=== PATIENT | male | born 1950 | race African-American/Black ===

== ENCOUNTER 2018-03-10 22:12 | Emergency (ER) | payer OTHER ==
[~2018-03-10] VITALS: Ht 175.3 cm; Wt 90.7 kg
[2018-03-10 22:14] VITALS: BP_SYST 142
--- NOTE | 2018-03-10 22:14 | NUR ---
Patient to [facility] in custody of [employer] for legal blood draw.
--- NOTE | 2018-03-10 22:45 | NUR ---
Written and verbal consent obtained from patient for blood alcohol, name and verified by patient. Disinfected patient's skin with Povidone-Iodine that did not contain alcohol or other volatile organic compound. Collected the blood from the subject named by venipuncture, in the presence of Deputy Dinh . Used a sterile, dry hypodermic needle and dry vacuum blood collection. The dry vacuum blood collection were supplied by the officer named above. Withdrew a specimen of blood from right AC of the subject named above. Inverted the blood tube several times to ensure that the preservative and anticoagulant were thoroughly mixed in the blood specimen. I initialed the blood tubes labels for identification. The labeled blood tubes were handed directly to the Officer named above. The blood tube stopper remained in place while I had possession of the blood tube. The Officer placed tube into envelope and sealed it in my presence. Envelope initialed by myself and Officer named above. Patient tolerated well, bandage applied, and bleeding controlled.
[2018-03-10 22:50] VITALS: BP_SYST 140
--- NOTE | 2018-03-10 22:50 | NUR ---
Patient left ER in no acute distress, able to ambulate without difficulty with slow, steady gait in handcuffs in custody of [facility]. Patient without complaints at present.
== END 2018-03-10 22:50 ==
LOC: SED 22:12
DX: Z02.83 Encounter for blood-alcohol and blood-drug test (principal)

== ENCOUNTER 2020-06-12 16:10 | Emergency (ER) | payer OTHER, SELFPAY ==
[~2020-06-12] VITALS: Ht 175.3 cm; Wt 88.5 kg
[2020-06-12 17:45] VITALS: BP_SYST 174
--- NOTE | 2020-06-12 17:45 | NUR ---
PT TO REMAIN IN TENT DUE TO COVID SYMPTOMS
[2020-06-12] MEDS ORDERED: ALBUTEROL SULFATE 0.083% 2.5 MG/3 ML VIAL.NEB INH ONE ×2 (18:45→18:55)
--- NOTE | 2020-06-12 20:30 | NUR ---
ER Dr. HUBER at bedside examining patient.
--- NOTE | 2020-06-12 21:07 | NUR ---
COVID MARNIE AND INFLUENZE SWAB PEFORMED PT. TOLERATED WELL SENT TO LAB AWAITING RESULTS
[2020-06-12 22:20] LABS: INFLUENZA A&B ANTIGEN SCREEN NEGATIVE FOR A & B (NEGATIVE)
[2020-06-12 22:53] LABS: HEMATOCRIT 38.8 % (36-54); MEAN CORPUSCULAR HEMOGLOBIN 30 pg (27-31); MEAN CORPUSCULAR HGB CONC 34 % (32-36); MEAN CORPUSCULAR VOLUME 88 fL (79.0-98.0); PLATELET COUNT (AUTO) 407 K/uL (130-430); RED BLOOD CELL COUNT(AUTO) 4.39 MIL/uL (4.2-6.2); RED CELL DISTRIBUTION WIDTH 12.9 % (9.0-15.0); WHITE BLOOD COUNT (AUTO) 10.6 K/uL (4.8-10.8)
[2020-06-12 23:19] LABS: ANION GAP 10 (5-15); CALCIUM 9.7 mg/dL (8.4-11.0); CHLORIDE 100 mmol/L (98-107); CREATININE 1.15 mg/dL (0.55-1.30); GLUCOSE 95 mg/dL (70-99); POTASSIUM 4.1 mmol/L (3.5-5.1); SODIUM SERUM 137 mmol/L (136-145); UREA NITROGEN, BLOOD 21 mg/dL (8-21)
[2020-06-12 23:25] VITALS: BP_SYST 175
[2020-06-12 23:29] LABS: ALANINE AMINOTRANSFERASE 22 U/L (12-78); ALBUMIN 3.3 g/dL (3.4-4.8); ASPARTATE AMINOTRANSFERASE 28 U/L (10-37); TOTAL BILIRUBIN 0.4 mg/dL (0.0-1.0)
[2020-06-12 23:40] LABS: PROTHROMBIN TIME 10.7 SECS (9.5-12.5)
--- NOTE | 2020-06-13 00:22 | NUR ---
PT. ELOPED FROM ED TENT
[2020-06-13 01:36] LABS: ATYPICAL LYMPHOCYTES % 2 % (0-0); BAND % (MANUAL) 2 % (0-6); BASOPHILS % (MANUAL) 0 % (0-2); EOSINOPHILS % (MANUAL) 2 % (0-7); LYMPHOCYTES % (MANUAL) 55 % (20-46); MONOCYTES % (MANUAL) 11 % (0-11)
== END 2020-06-13 00:22 | disposition left against medical advice (07) ==
LOC: SED 16:10
DX: U07.1 COVID-19 (principal); R06.02 Shortness of breath; Z88.0 Allergy status to penicillin
CPT/HCPCS: 36415; 71045; 80053; 83605; 83880; 84484; 85007; 85027; 85610; 86710; 87040; 87426; 93005; 94640; 99285; J7613; 85025

== ENCOUNTER 2021-11-25 20:29 | Emergency (ER) | payer OTHER ==
[~2021-11-25] VITALS: Ht 175.3 cm; Wt 89.4 kg
[2021-11-25 20:40] VITALS: BP_SYST 96
--- NOTE | 2021-11-25 21:47 | NUR ---
Patient to ER bed 04 to gown for evaluation. Side rails up. Report given to RANJITH Andre
[2021-11-25] MEDS ORDERED: LIDOCAINE 1% 10 MG/ML, 20 ML MDV INJ ONE (22:00)
--- NOTE | 2021-11-25 22:02 | NUR ---
71 YR OLD AOX4, AMBULATORY MALE WITH COMPLAINT OF FISH BEBE LODGED IN HIS LEFT WRIST WITH ACTIVE BLEEDING. PT REPORTS GOING TO THE URGENT CARE ABOUT 3 HOURS AGO AND BEING REFFERED TO THE ER. PT ENCOURAGED TO WASH HIS HANDS WITH SOAP AND WATER, WRIST WOUND CLEANED BY TECH WITH BETADINE AND SALINE. AT THE BEDSIDE. ACCOMPANIED BY .
--- NOTE | 2021-11-25 23:18 | NUR ---
MD LINDSAY AT THE BEDSIDE PT WRIST INJECTED WITH LIDOCAINE FOR ANESTHETIC FOR PREPARATION OF BEBE REMOVAL. USING ULTRASOUND TO LOCATE INSERTION OF BEBE
[2021-11-25] MEDS ORDERED: LIDOCAINE 1%, 20 ML MDV 20 ML ONE (23:43)
[2021-11-26] MEDS ORDERED: ACET-2634 PO (00:18)
[2021-11-26] MEDS ORDERED: IBUP-1969 PO (00:18)
--- NOTE | 2021-11-26 00:50 | NUR ---
Patient given written and verbal discharge instructions and verbalizes understanding. ER MD discussed with patient the results and treatment provided. Patient in stable condition. ID arm band removed. Pt wound cleaned dressing applied, no active bleeding. pt encouraged to return to have sutures removed or follow up with primary MD Rx of ibuprofen and tylenol given. Patient educated on pain management and to follow up with PMD. Opportunity for questions provided and answered. Pt accompanied by , discharged with all belongings
== END 2021-11-26 00:32 | disposition home or self-care (01) ==
LOC: SED 20:29
DX: S61.442A Puncture wound with foreign body of left hand, initial encounter (principal); E11.9 Type 2 diabetes mellitus without complications; Z88.0 Allergy status to penicillin; W56.51XA Bitten by other fish, initial encounter; Y93.G9 Activity, other involving cooking and grilling; Y92.89 Other specified places as the place of occurrence of the external cause; Y99.8 Other external cause status
CPT/HCPCS: 12041; 99284; J2001

== ENCOUNTER 2023-05-08 18:28 | Inpatient (IN) | payer OTHER ==
[~2023-05-08] VITALS: Ht 175.3 cm; Wt 77.6 kg
[2023-05-08 18:28] VITALS: BP_SYST 150; PULSE 100; RESP 18; TEMP 97.8; O2SAT 96
[~2023-05-08 18:28] MED LIST: ACET-2634 PO; CETI10CA11 PO; IBUP-1969 PO; PRAZ2CAP2 PO; PRED20TA PO; SERT-131 PO; TAMS-11 PO
[2023-05-08 19:38] LABS: HEMATOCRIT 40.7 % (36-54); HEMOGLOBIN 13.1 g/dL (14.0-18.0); MEAN CORPUSCULAR HEMOGLOBIN 30 pg (27-31); MEAN CORPUSCULAR HGB CONC 32 % (32-36); MEAN CORPUSCULAR VOLUME 92 fL (79.0-98.0); PLATELET COUNT (AUTO) 201 K/uL (130-430); RED BLOOD CELL COUNT(AUTO) 4.44 MIL/uL (4.2-6.2); RED CELL DISTRIBUTION WIDTH 14.3 % (9.0-15.0); WHITE BLOOD COUNT (AUTO) 11.8 K/uL (4.8-10.8)
[2023-05-08 19:59] LABS: ANION GAP 6 (5-15); CALCIUM 8.8 mg/dL (8.4-11.0); CARBON DIOXIDE 30 mmol/L (23-29); CHLORIDE 102 mmol/L (98-107); CREATININE 1.19 mg/dL (0.55-1.30); GLUCOSE 151 mg/dL (74-106); POTASSIUM 3.8 mmol/L (3.5-5.1); SODIUM SERUM 138 mmol/L (136-145); UREA NITROGEN, BLOOD 19 mg/dL (8-21)
[2023-05-08 20:00] LABS: COVID19 ANTIGEN SOFIA FIA NEGATIVE (NEGATIVE)
[2023-05-08 20:00] LABS: PROTHROMBIN TIME 10.7 SECS (9.5-12.5)
[2023-05-08 20:05] LABS: ALANINE AMINOTRANSFERASE 14 U/L (12-78); ALBUMIN 2.8 g/dL (3.4-4.8); ASPARTATE AMINOTRANSFERASE 16 U/L (10-37); TOTAL BILIRUBIN 0.4 mg/dL (0.0-1.0)
[2023-05-08 20:05] LABS: INFLUENZA TYPE A Negative (NEGATIVE); INFLUENZA TYPE B NEGATIVE (NEGATIVE)
[2023-05-08 20:12] LABS: BAND % (MANUAL) 1 % (0-6); BASOPHILS % (MANUAL) 0 % (0-2); EOSINOPHILS % (MANUAL) 4 % (0-7); LYMPHOCYTES % (MANUAL) 47 % (20-46); MONOCYTES % (MANUAL) 14 % (0-11); OVALOCYTES FEW; PLATELET ESTIMATE ADEQUATE (ADEQUATE); TARGET CELLS FEW
[2023-05-08] MEDS ORDERED: FUROSEMIDE 40 MG/4 ML VIAL IVP ONE (21:15)
[2023-05-08] MEDS ORDERED: MAGNESIUM SULFATE 50 ML IV PRN (21:30)
[2023-05-08] MEDS ORDERED: LORazepam 2 MG/ML VIAL IVP PRN (21:30)
[2023-05-08] MEDS ORDERED: DOCUSATE SODIUM 100 MG CAPSULE PO PRN (21:30)
[2023-05-08] MEDS ORDERED: IPRATROPIUM/ALBUTEROL SULFATE 3 ML AMPUL.NEB (DUONEB) INH PRN (21:30)
[2023-05-08] MEDS ORDERED: POTASSIUM CHLORIDE 20 MEQ TABLET.ER PO PRN (21:30)
[2023-05-08] MEDS ORDERED: ONDANSETRON HCL 4 MG/2 ML VIAL IVP PRN (21:30)
[2023-05-08] MEDS ORDERED: MUPIROCIN 2% TOPICAL OINTMENT 22 GM NS PRN (21:30)
[2023-05-08] MEDS: ACETAMINOPHEN 325 MG TABLET PO PRN (23:11)
[2023-05-08] MEDS: ZOLPIDEM TARTRATE 5 MG TABLET PO PRN (23:12)
[2023-05-09] VITALS (8 sets, daily range): BP systolic 107–153; PULSE 96–103; RESP 16–22; TEMP 97.1–97.9; O2SAT 93–100
[2023-05-09 04:42] LABS: BASOPHILS # (AUTO) 0.1 K/uL (0.0-0.2); BASOPHILS % (AUTO) 0.8 % (0.0-2.0); EOSINOPHILS # (AUTO) 0.8 K/uL (0.0-0.4); HEMATOCRIT 40.5 % (36-54); HEMOGLOBIN 12.9 g/dL (14.0-18.0); LYMPHOCYTES # (AUTO) 8.4 K/uL (1.0-5.5); LYMPHOCYTES % (AUTO) 60.7 % (20.5-51.5); MEAN CORPUSCULAR HEMOGLOBIN 30 pg (27-31); MEAN CORPUSCULAR HGB CONC 32 % (32-36); MEAN CORPUSCULAR VOLUME 93 fL (79.0-98.0); MONOCYTES # (AUTO) 1.4 K/uL (0.0-1.0); MONOCYTES % (AUTO) 10.3 % (1.7-9.3); NEUTROPHILS # (AUTO) 3.1 K/uL (1.8-7.7); NEUTROPHILS % (AUTO) 22.2 % (40.0-70.0); PLATELET COUNT (AUTO) 205 K/uL (130-430); RED BLOOD CELL COUNT(AUTO) 4.37 MIL/uL (4.2-6.2); RED CELL DISTRIBUTION WIDTH 14.2 % (9.0-15.0); WHITE BLOOD COUNT (AUTO) 13.8 K/uL (4.8-10.8)
[2023-05-09 04:59] LABS: ANION GAP 8 (5-15); CALCIUM 9.3 mg/dL (8.4-11.0); CARBON DIOXIDE 28 mmol/L (23-29); CHLORIDE 102 mmol/L (98-107); CREATININE 1.25 mg/dL (0.55-1.30); GLUCOSE 129 mg/dL (74-106); POTASSIUM 3.9 mmol/L (3.5-5.1); SODIUM SERUM 138 mmol/L (136-145); UREA NITROGEN, BLOOD 20 mg/dL (8-21)
[2023-05-09] MEDS: HEPARIN SODIUM,PORCINE 5,000 UNITS/ML VIAL SUBCUT SCH ×2 (09:00→21:06)
[2023-05-09] MEDS: FUROSEMIDE 40 MG/4 ML VIAL IVP SCH ×2 (09:58→10:09)
[2023-05-09] MEDS: SERTRALINE HCL 50 MG TABLET PO SCH (09:59)
[2023-05-09] MEDS: ACETAMINOPHEN 325 MG TABLET PO PRN (11:25)
[2023-05-09] MEDS ORDERED: TAMSULOSIN HCL 0.4 MG CAP PO SCH (21:00)
[2023-05-09] MEDS ORDERED: PRAZOSIN HCL 1 MG CAPSULE PO SCH (21:00)
[2023-05-09] MEDS: ZOLPIDEM TARTRATE 5 MG TABLET PO PRN (21:15)
[2023-05-10 02:24] VITALS: BP_SYST 142; PULSE 101; RESP 16; TEMP 97.4; O2SAT 95
[2023-05-10 05:30] LABS: BASOPHILS # (AUTO) 0.1 K/uL (0.0-0.2); BASOPHILS % (AUTO) 0.7 % (0.0-2.0); EOSINOPHILS # (AUTO) 0.1 K/uL (0.0-0.4); EOSINOPHILS % (AUTO) 0.7 % (0.0-4.0); HEMATOCRIT 38.9 % (36-54); HEMOGLOBIN 12.4 g/dL (14.0-18.0); LYMPHOCYTES # (AUTO) 4.4 K/uL (1.0-5.5); LYMPHOCYTES % (AUTO) 48.8 % (20.5-51.5); MEAN CORPUSCULAR HEMOGLOBIN 30 pg (27-31); MEAN CORPUSCULAR HGB CONC 32 % (32-36); MEAN CORPUSCULAR VOLUME 92 fL (79.0-98.0); MONOCYTES # (AUTO) 0.6 K/uL (0.0-1.0); MONOCYTES % (AUTO) 6.2 % (1.7-9.3); NEUTROPHILS # (AUTO) 3.9 K/uL (1.8-7.7); NEUTROPHILS % (AUTO) 43.6 % (40.0-70.0); PLATELET COUNT (AUTO) 197 K/uL (130-430); RED BLOOD CELL COUNT(AUTO) 4.21 MIL/uL (4.2-6.2); RED CELL DISTRIBUTION WIDTH 14.6 % (9.0-15.0); WHITE BLOOD COUNT (AUTO) 8.9 K/uL (4.8-10.8)
[2023-05-10 05:50] LABS: ANION GAP 9 (5-15); CARBON DIOXIDE 28 mmol/L (23-29); CHLORIDE 104 mmol/L (98-107); CREATININE 1.15 mg/dL (0.55-1.30); GLUCOSE 147 mg/dL (74-106); POTASSIUM 3.7 mmol/L (3.5-5.1); SODIUM SERUM 141 mmol/L (136-145); UREA NITROGEN, BLOOD 19 mg/dL (8-21)
[2023-05-10 08:00] VITALS: O2SAT 99
[2023-05-10 08:10] VITALS: BP_SYST 133; PULSE 96; RESP 18; TEMP 97.5; O2SAT 97
[2023-05-10 11:35] VITALS: O2SAT 100
[2023-05-10] MEDS: SERTRALINE HCL 50 MG TABLET PO SCH (11:37)
[2023-05-10] MEDS: FUROSEMIDE 40 MG/4 ML VIAL IVP SCH (11:39)
[2023-05-10] MEDS: HEPARIN SODIUM,PORCINE 5,000 UNITS/ML VIAL SUBCUT SCH (11:45)
[2023-05-10 12:54] VITALS: BP_SYST 111; PULSE 102; RESP 16; TEMP 97.6; O2SAT 93
[2023-05-10 13:26] LABS: BF APPEARANCE UNSPUN HAZY (CLEAR); BODY FLUID COLOR YELLOW (LT YELLOW); BODY FLUID SOURCE/ TYPE PLEURAL; BODY FLUID TOTAL VOLUME 1450 mL; SOURCE/TYPE ,BODY FLUID PLEURAL; WBC, BODY FLUID 3750 /uL
[2023-05-10 13:27] LABS: EOSINOPHIL, BODY FLUID 0 %; LYMPHOCYTES, BODY FLUID 100 %; MONOCYTES,BODY FLUID 0 %; NEUTROPHIL, BODY FLUID 0 %; RBC, BODY FLUID 210 /uL
[2023-05-10 14:00] VITALS: BP_SYST 132; PULSE 82; RESP 18; TEMP 98; O2SAT 99
[2023-05-10 18:09] LABS: BODY FLUID GLUCOSE 140 mg/dL; BODY FLUID TOTAL PROTEIN 3.6 g/dL
== END 2023-05-10 14:15 | disposition home or self-care (01) | DRG 291 ==
LOC: SED 18:28 → STU 21:23
PROVIDERS: ADMIT General Practice; ATTEND General Practice
PROC: 0W993ZZ Drainage of Right Pleural Cavity, Percutaneous Approach (ICD-10-PCS; principal; 2023-05-10)
DX: I11.0 Hypertensive heart disease with heart failure (principal); I50.43 Acute on chronic combined systolic (congestive) and diastolic (congestive) heart failure; C91.10 Chronic lymphocytic leukemia of B-cell type not having achieved remission; J91.8 Pleural effusion in other conditions classified elsewhere; E11.9 Type 2 diabetes mellitus without complications; N40.0 Benign prostatic hyperplasia without lower urinary tract symptoms; F32.A Depression, unspecified; Z20.822 Contact with and (suspected) exposure to COVID-19; Z88.5 Allergy status to narcotic agent; Z88.0 Allergy status to penicillin; Z98.52 Vasectomy status
CPT/HCPCS: 32555; 36415; 71045; 80048; 80053; 82947; 83037; 83615; 83735; 83880; 84157; 84484; 85007; 85025; 85027; 85610-TC; 85730-TC; 87070-TC; 87116; 88108; 88305; 88313; 89051-TC; 89060-TC; 93005; 94640; 94760; 99285; G0378; J1644; J1940

== ENCOUNTER 2023-11-04 05:08 | Inpatient (IN) | payer OTHER ==
[~2023-11-04] VITALS: Ht 175.3 cm; Wt 67.6 kg
[2023-11-04] VITALS (7 sets, daily range): BP systolic 102–162; PULSE 87–116; RESP 16–22; TEMP 97.2–98.8; O2SAT 96–100
[2023-11-04] MEDS: methylPREDNISolone SOD SUCC/PF 62.5 MG/ML VIAL IVP ONE (06:03)
[2023-11-04 06:23] LABS: BASOPHILS % (AUTO) 0.3 % (0.0-2.0); EOSINOPHILS # (AUTO) 0.2 K/uL (0.0-0.4); EOSINOPHILS % (AUTO) 1.9 % (0.0-4.0); HEMOGLOBIN 10.2 g/dL (14.0-18.0); LYMPHOCYTES # (AUTO) 4.5 K/uL (1.0-5.5); LYMPHOCYTES % (AUTO) 46.8 % (20.5-51.5); MEAN CORPUSCULAR HEMOGLOBIN 28 pg (27-31); MEAN CORPUSCULAR HGB CONC 32 % (32-36); MEAN CORPUSCULAR VOLUME 88 fL (79.0-98.0); MONOCYTES # (AUTO) 0.6 K/uL (0.0-1.0); MONOCYTES % (AUTO) 6.4 % (1.7-9.3); NEUTROPHILS # (AUTO) 4.3 K/uL (1.8-7.7); NEUTROPHILS % (AUTO) 44.6 % (40.0-70.0); PLATELET COUNT (AUTO) 406 K/uL (130-430); RED BLOOD CELL COUNT(AUTO) 3.66 MIL/uL (4.2-6.2); RED CELL DISTRIBUTION WIDTH 17.8 % (9.0-15.0); WHITE BLOOD COUNT (AUTO) 9.6 K/uL (4.8-10.8)
[2023-11-04 08:05] LABS: ANION GAP 11 (5-15); CALCIUM 8.4 mg/dL (8.4-11.0); CARBON DIOXIDE 23 mmol/L (23-29); CHLORIDE 104 mmol/L (98-107); CREATININE 0.94 mg/dL (0.55-1.30); GLUCOSE 133 mg/dL (74-106); POTASSIUM 4.3 mmol/L (3.5-5.1); SODIUM SERUM 138 mmol/L (136-145); UREA NITROGEN, BLOOD 11 mg/dL (8-21)
[2023-11-04] MEDS: IPRATROPIUM/ALBUTEROL SULFATE 3 ML AMPUL.NEB (DUONEB) INH ONE (08:20)
[2023-11-04] MEDS ORDERED: ACETAMINOPHEN 325 MG TABLET PO PRN ×2 (08:45→09:00)
[2023-11-04] MEDS ORDERED: ONDANSETRON HCL 4 MG/2 ML VIAL IVP PRN (08:45)
[2023-11-04] MEDS ORDERED: ALBUTEROL SULFATE 0.083% 2.5 MG/3 ML VIAL.NEB INH PRN (08:45)
[2023-11-04] MEDS ORDERED: IPRATROPIUM BROM 0.5 MG/2.5 ML VIAL.NEB (ATROVENT) INH PRN (08:45)
[2023-11-04] MEDS: ASPIRIN 81 MG TAB.CHEW PO ONE (08:52)
[2023-11-04] MEDS: FUROSEMIDE 20 MG/2 ML VIAL IVP ONE (08:52)
[2023-11-04] MEDS: NITROGLYCERIN 1 INCH (GM) OINT. TP ONE (08:56)
[2023-11-04] MEDS ORDERED: IBUPROFEN 600 MG TABLET PO PRN (09:00)
[2023-11-04] MEDS: SERTRALINE HCL 50 MG TABLET PO SCH (09:00)
[2023-11-04 12:30] LABS: INR 1.1 (0.80-1.20); PROTHROMBIN TIME 11.2 SECS (9.5-12.5)
[2023-11-04] MEDS: HEPARIN SODIUM,PORCINE 5,000 UNITS/ML VIAL SUBCUT ONE (16:56)
[2023-11-04] MEDS: TAMSULOSIN HCL 0.4 MG CAP PO SCH (21:13)
[2023-11-04] MEDS: HEPARIN SODIUM,PORCINE 5,000 UNITS/ML VIAL SUBCUT SCH (21:17)
[2023-11-04] MEDS: FUROSEMIDE 20 MG/2 ML VIAL IVP SCH (21:19)
[2023-11-05 01:11] VITALS: BP_SYST 114; PULSE 84; RESP 17; TEMP 98.8; O2SAT 100
[2023-11-05 07:45] LABS: ALANINE AMINOTRANSFERASE 10 U/L (12-78); ALBUMIN 2.2 g/dL (3.4-4.8); ANION GAP 10 (5-15); ASPARTATE AMINOTRANSFERASE 16 U/L (10-37); CALCIUM 8.2 mg/dL (8.4-11.0); CARBON DIOXIDE 26 mmol/L (23-29); CHLORIDE 108 mmol/L (98-107); CREATININE 0.91 mg/dL (0.55-1.30); GLUCOSE 90 mg/dL (74-106); POTASSIUM 3.8 mmol/L (3.5-5.1); SODIUM SERUM 144 mmol/L (136-145); TOTAL BILIRUBIN 0.2 mg/dL (0.0-1.0); TOTAL PROTEIN, SERUM 5.9 g/dL (6.4-8.3); UREA NITROGEN, BLOOD 14 mg/dL (8-21)
[2023-11-05 08:00] VITALS: O2SAT 97
[2023-11-05 08:22] LABS: BASOPHILS % (AUTO) 0.2 % (0.0-2.0); HEMATOCRIT 26.1 % (36-54); HEMOGLOBIN 8.5 g/dL (14.0-18.0); LYMPHOCYTES # (AUTO) 5.2 K/uL (1.0-5.5); LYMPHOCYTES % (AUTO) 56.6 % (20.5-51.5); MEAN CORPUSCULAR HEMOGLOBIN 28 pg (27-31); MEAN CORPUSCULAR HGB CONC 33 % (32-36); MEAN CORPUSCULAR VOLUME 86 fL (79.0-98.0); MONOCYTES % (AUTO) 11.3 % (1.7-9.3); NEUTROPHILS # (AUTO) 2.9 K/uL (1.8-7.7); NEUTROPHILS % (AUTO) 31.9 % (40.0-70.0); PLATELET COUNT (AUTO) 366 K/uL (130-430); RED BLOOD CELL COUNT(AUTO) 3.04 MIL/uL (4.2-6.2); RED CELL DISTRIBUTION WIDTH 17.7 % (9.0-15.0); WHITE BLOOD COUNT (AUTO) 9.1 K/uL (4.8-10.8)
[2023-11-05] MEDS: ASPIRIN 81 MG TAB.CHEW PO SCH (10:14)
[2023-11-05] MEDS: ATORVASTATIN 20 MG TABLET PO SCH (10:15)
[2023-11-05 11:05] VITALS: BP_SYST 112; PULSE 83; RESP 16; TEMP 98; O2SAT 100
[2023-11-05 15:04] VITALS: BP_SYST 104; PULSE 85; RESP 16; TEMP 97.2; O2SAT 99
[2023-11-05 19:00] VITALS: BP_SYST 114; PULSE 91; RESP 16; TEMP 98.2; O2SAT 96
[2023-11-05 20:00] VITALS: BP_SYST 119; PULSE 83; RESP 16; TEMP 97.9; O2SAT 98
[2023-11-06 00:51] VITALS: BP_SYST 128; PULSE 78; RESP 17; TEMP 98.6; O2SAT 100
[2023-11-06 07:52] LABS: HEMATOCRIT 25.9 % (36-54); HEMOGLOBIN 8.4 g/dL (14.0-18.0); MEAN CORPUSCULAR HEMOGLOBIN 28 pg (27-31); MEAN CORPUSCULAR HGB CONC 32 % (32-36); MEAN CORPUSCULAR VOLUME 87 fL (79.0-98.0); PLATELET COUNT (AUTO) 352 K/uL (130-430); RED BLOOD CELL COUNT(AUTO) 2.98 MIL/uL (4.2-6.2); RED CELL DISTRIBUTION WIDTH 17.5 % (9.0-15.0)
[2023-11-06 07:59] LABS: ALANINE AMINOTRANSFERASE 21 U/L (12-78); ALBUMIN 1.9 g/dL (3.4-4.8); ANION GAP 8 (5-15); CALCIUM 7.9 mg/dL (8.4-11.0); CARBON DIOXIDE 30 mmol/L (23-29); CHLORIDE 107 mmol/L (98-107); CREATININE 0.92 mg/dL (0.55-1.30); GLUCOSE 83 mg/dL (74-106); PHOSPHORUS 3.3 mg/dL (2.7-4.5); POTASSIUM 3.7 mmol/L (3.5-5.1); SODIUM SERUM 145 mmol/L (136-145); TOTAL BILIRUBIN 0.1 mg/dL (0.0-1.0); TOTAL PROTEIN, SERUM 5.2 g/dL (6.4-8.3); UREA NITROGEN, BLOOD 14 mg/dL (8-21)
[2023-11-06 08:00] VITALS: BP_SYST 108; PULSE 87; RESP 18; TEMP 98.2; O2SAT 97; O2SAT 98
[2023-11-06 08:09] LABS: ASPARTATE AMINOTRANSFERASE 22 U/L (10-37)
[2023-11-06] MEDS ORDERED: LIP20 PO (08:11)
[2023-11-06] MEDS ORDERED: FURO-150 PO (08:11)
[2023-11-06] MEDS ORDERED: ASPI-1393 PO (08:11)
[2023-11-06] MEDS: ASPIRIN 81 MG TABLET(ECOTRIN) PO SCH (10:24)
[2023-11-06 11:01] LABS: ATYPICAL LYMPHOCYTES % 20 % (0-0); BAND % (MANUAL) 0 % (0-6); BASOPHILS % (MANUAL) 0 % (0-2); EOSINOPHILS % (MANUAL) 2 % (0-7); LYMPHOCYTES % (MANUAL) 48 % (20-46); MONOCYTES % (MANUAL) 8 % (0-11); PLATELET ESTIMATE ADEQUATE (ADEQUATE); SMUDGE CELLS RARE
[2023-11-06 11:02] VITALS: BP_SYST 102; PULSE 91; RESP 16; TEMP 97; O2SAT 99
[2023-11-06 15:02] VITALS: BP_SYST 101; PULSE 65; RESP 16; TEMP 97.1; O2SAT 96
[2023-11-06 16:29] VITALS: BP_SYST 101; PULSE 65; RESP 18; TEMP 97.8; O2SAT 97
== END 2023-11-06 16:53 | disposition home or self-care (01) | DRG 280 ==
LOC: SED 05:08 → STU 09:26 → SMU 17:07
PROVIDERS: ADMIT Student in an Organized Health Care Education/Training Program; ATTEND Student in an Organized Health Care Education/Training Program
DX: I11.0 Hypertensive heart disease with heart failure (principal); I50.43 Acute on chronic combined systolic (congestive) and diastolic (congestive) heart failure; I21.A1 Myocardial infarction type 2; J96.21 Acute and chronic respiratory failure with hypoxia; C85.90 Non-Hodgkin lymphoma, unspecified, unspecified site; C34.90 Malignant neoplasm of unspecified part of unspecified bronchus or lung; E11.9 Type 2 diabetes mellitus without complications; D64.9 Anemia, unspecified; Z88.0 Allergy status to penicillin; Z88.5 Allergy status to narcotic agent; Z79.899 Other long term (current) drug therapy; Z79.82 Long term (current) use of aspirin
CPT/HCPCS: 36415; 71045; 76604; 80048; 80053; 83735; 83880; 84100; 84484; 85007; 85025; 85027; 85610; 87040; 93306; 94640; 94664; 94760; 97112-GP; 97116-GP; 99291; J1644; J1940; J1956; J2930

== ENCOUNTER 2023-12-01 15:32 | Inpatient (IN) | payer OTHER ==
[~2023-12-01] VITALS: Ht 167.6 cm; Wt 72.4 kg
[~2023-12-01 15:32] MED LIST changes: +ASPI-1393 PO; +FURO-150 PO; +LIP20 PO
[2023-12-01 15:44] VITALS: BP_SYST 101; PULSE 78; RESP 22; TEMP 97.2; O2SAT 98
[2023-12-01 16:33] LABS: BILIRUBIN,URINE NEGATIVE (NEGATIVE); BLOOD, URINE NEGATIVE (NEGATIVE); CLARITY/URINE CLEAR (CLEAR); COLOR,URINE YELLOW (YELLOW); GLUCOSE,URINE NEGATIVE (NEGATIVE); KETONES,URINE NEGATIVE (NEGATIVE); LEUKOCYTE ESTERASE ,URINE NEGATIVE (NEGATIVE); NITRITE, URINE NEGATIVE (NEGATIVE); PH,URINE 5.5 (5.0-8.0); PROTEIN URINE NEGATIVE (NEGATIVE); UROBILINOGEN,URINE 0.2 (0.2-1.0)
[2023-12-01 16:43] LABS: BASOPHILS % (AUTO) 0.5 % (0.0-2.0); EOSINOPHILS # (AUTO) 0.4 K/uL (0.0-0.4); EOSINOPHILS % (AUTO) 5.3 % (0.0-4.0); HEMOGLOBIN 9.9 g/dL (14.0-18.0); LYMPHOCYTES # (AUTO) 4.2 K/uL (1.0-5.5); LYMPHOCYTES % (AUTO) 54.9 % (20.5-51.5); MEAN CORPUSCULAR HEMOGLOBIN 28 pg (27-31); MEAN CORPUSCULAR HGB CONC 33 % (32-36); MEAN CORPUSCULAR VOLUME 85 fL (79.0-98.0); MONOCYTES # (AUTO) 0.8 K/uL (0.0-1.0); MONOCYTES % (AUTO) 10.6 % (1.7-9.3); NEUTROPHILS # (AUTO) 2.2 K/uL (1.8-7.7); NEUTROPHILS % (AUTO) 28.7 % (40.0-70.0); PLATELET COUNT (AUTO) 221 K/uL (130-430); RED BLOOD CELL COUNT(AUTO) 3.51 MIL/uL (4.2-6.2); RED CELL DISTRIBUTION WIDTH 16.6 % (9.0-15.0); WHITE BLOOD COUNT (AUTO) 7.7 K/uL (4.8-10.8)
[2023-12-01 16:50] LABS: INR 1.1 (0.80-1.20); PROTHROMBIN TIME 11.6 SECS (9.5-12.5)
[2023-12-01 16:54] LABS: ANION GAP 5 (5-15); CALCIUM 8.5 mg/dL (8.4-11.0); CARBON DIOXIDE 30 mmol/L (23-29); CHLORIDE 111 mmol/L (98-107); CREATINE KINASE, TOTAL 38 U/L (39-308); CREATININE 1.04 mg/dL (0.55-1.30); GLUCOSE 108 mg/dL (74-106); POTASSIUM 3.9 mmol/L (3.5-5.1); SODIUM SERUM 146 mmol/L (136-145); UREA NITROGEN, BLOOD 16 mg/dL (8-21)
[2023-12-01] MEDS ORDERED: iohexoL 350 mgI/mL, 100 ML INFUS..BTL IV ONE (17:48)
[2023-12-01] MEDS: FUROSEMIDE 40 MG/4 ML VIAL IVP ONE (19:06)
[2023-12-01] MEDS ORDERED: ONDANSETRON HCL 4 MG/2 ML VIAL IVP PRN (21:00)
[2023-12-01] MEDS ORDERED: ACETAMINOPHEN 325 MG TABLET PO PRN (21:00)
[2023-12-01] MEDS ORDERED: LORazepam 2 MG/ML VIAL IVP PRN (21:00)
[2023-12-01 21:16] VITALS: BP_SYST 144; PULSE 78
[2023-12-02] VITALS (9 sets, daily range): BP systolic 93–125; PULSE 64–82; RESP 16–18; TEMP 97.5–99; O2SAT 96–100
[2023-12-02] MEDS ORDERED: ALBUTEROL SULFATE 0.083% 2.5 MG/3 ML VIAL.NEB INH PRN (00:45)
[2023-12-02] MEDS: ALBUTEROL SULFATE 0.083% 2.5 MG/3 ML VIAL.NEB INH PRN (05:18)
[2023-12-02 06:20] LABS: BASOPHILS % (AUTO) 0.4 % (0.0-2.0); EOSINOPHILS # (AUTO) 0.4 K/uL (0.0-0.4); EOSINOPHILS % (AUTO) 4.2 % (0.0-4.0); HEMATOCRIT 31.2 % (36-54); LYMPHOCYTES # (AUTO) 4.7 K/uL (1.0-5.5); LYMPHOCYTES % (AUTO) 55.6 % (20.5-51.5); MEAN CORPUSCULAR HEMOGLOBIN 28 pg (27-31); MEAN CORPUSCULAR HGB CONC 32 % (32-36); MEAN CORPUSCULAR VOLUME 86 fL (79.0-98.0); MONOCYTES # (AUTO) 0.9 K/uL (0.0-1.0); MONOCYTES % (AUTO) 10.5 % (1.7-9.3); NEUTROPHILS # (AUTO) 2.5 K/uL (1.8-7.7); NEUTROPHILS % (AUTO) 29.3 % (40.0-70.0); PLATELET COUNT (AUTO) 232 K/uL (130-430); RED BLOOD CELL COUNT(AUTO) 3.62 MIL/uL (4.2-6.2); RED CELL DISTRIBUTION WIDTH 16.6 % (9.0-15.0); WHITE BLOOD COUNT (AUTO) 8.5 K/uL (4.8-10.8)
[2023-12-02 07:08] LABS: ALANINE AMINOTRANSFERASE 11 U/L (12-78); ALBUMIN 2.3 g/dL (3.4-4.8); ANION GAP 9 (5-15); ASPARTATE AMINOTRANSFERASE 13 U/L (10-37); CALCIUM 8.8 mg/dL (8.4-11.0); CARBON DIOXIDE 29 mmol/L (23-29); CHLORIDE 108 mmol/L (98-107); CREATININE 1.06 mg/dL (0.55-1.30); GLUCOSE 93 mg/dL (74-106); PHOSPHORUS 4.4 mg/dL (2.7-4.5); POTASSIUM 3.8 mmol/L (3.5-5.1); SODIUM SERUM 146 mmol/L (136-145); TOTAL BILIRUBIN 0.3 mg/dL (0.0-1.0); TOTAL PROTEIN, SERUM 6.1 g/dL (6.4-8.3); UREA NITROGEN, BLOOD 15 mg/dL (8-21)
[2023-12-02] MEDS: ASPIRIN 81 MG TABLET(ECOTRIN) PO SCH (09:31)
[2023-12-02] MEDS: SERTRALINE HCL 50 MG TABLET PO SCH (09:32)
[2023-12-02] MEDS: ATORVASTATIN 20 MG TABLET PO SCH (09:32)
[2023-12-02] MEDS: FUROSEMIDE 40 MG/4 ML VIAL IVP SCH ×2 (09:39→17:21)
[2023-12-02] MEDS: HEPARIN SODIUM,PORCINE 5,000 UNITS/ML VIAL SUBCUT SCH (21:00)
[2023-12-02] MEDS: TAMSULOSIN HCL 0.4 MG CAP PO SCH (22:07)
[2023-12-03] VITALS (7 sets, daily range): BP systolic 100–122; PULSE 75–104; RESP 15–20; TEMP 97–97.8; O2SAT 96–100
[2023-12-03 07:30] LABS: ANION GAP 8 (5-15); CALCIUM 8.6 mg/dL (8.4-11.0); CARBON DIOXIDE 30 mmol/L (23-29); CHLORIDE 106 mmol/L (98-107); GLUCOSE 101 mg/dL (74-106); PHOSPHORUS 4.5 mg/dL (2.7-4.5); POTASSIUM 3.7 mmol/L (3.5-5.1); SODIUM SERUM 144 mmol/L (136-145); UREA NITROGEN, BLOOD 16 mg/dL (8-21)
[2023-12-03 07:34] LABS: BASOPHILS % (AUTO) 0.1 % (0.0-2.0); EOSINOPHILS # (AUTO) 0.3 K/uL (0.0-0.4); EOSINOPHILS % (AUTO) 3.8 % (0.0-4.0); HEMATOCRIT 30.4 % (36-54); HEMOGLOBIN 9.8 g/dL (14.0-18.0); LYMPHOCYTES % (AUTO) 55.3 % (20.5-51.5); MEAN CORPUSCULAR HEMOGLOBIN 28 pg (27-31); MEAN CORPUSCULAR HGB CONC 32 % (32-36); MEAN CORPUSCULAR VOLUME 86 fL (79.0-98.0); MONOCYTES # (AUTO) 0.8 K/uL (0.0-1.0); MONOCYTES % (AUTO) 11.4 % (1.7-9.3); NEUTROPHILS # (AUTO) 2.1 K/uL (1.8-7.7); NEUTROPHILS % (AUTO) 29.4 % (40.0-70.0); PLATELET COUNT (AUTO) 207 K/uL (130-430); RED BLOOD CELL COUNT(AUTO) 3.52 MIL/uL (4.2-6.2); RED CELL DISTRIBUTION WIDTH 16.4 % (9.0-15.0); WHITE BLOOD COUNT (AUTO) 7.2 K/uL (4.8-10.8)
[2023-12-04 04:00] VITALS: BP_SYST 118; PULSE 83; RESP 20; TEMP 97.5; O2SAT 100
[2023-12-04 08:00] VITALS: BP_SYST 110; PULSE 56; RESP 18; TEMP 98.6; O2SAT 99
[2023-12-04 08:15] LABS: BASOPHILS % (AUTO) 0.5 % (0.0-2.0); EOSINOPHILS # (AUTO) 0.2 K/uL (0.0-0.4); EOSINOPHILS % (AUTO) 2.4 % (0.0-4.0); HEMATOCRIT 28.3 % (36-54); HEMOGLOBIN 9.3 g/dL (14.0-18.0); LYMPHOCYTES % (AUTO) 60.5 % (20.5-51.5); MEAN CORPUSCULAR HEMOGLOBIN 28 pg (27-31); MEAN CORPUSCULAR HGB CONC 33 % (32-36); MEAN CORPUSCULAR VOLUME 85 fL (79.0-98.0); MONOCYTES # (AUTO) 0.6 K/uL (0.0-1.0); NEUTROPHILS # (AUTO) 1.9 K/uL (1.8-7.7); NEUTROPHILS % (AUTO) 27.6 % (40.0-70.0); PLATELET COUNT (AUTO) 176 K/uL (130-430); RED BLOOD CELL COUNT(AUTO) 3.33 MIL/uL (4.2-6.2); RED CELL DISTRIBUTION WIDTH 16.7 % (9.0-15.0); WHITE BLOOD COUNT (AUTO) 6.7 K/uL (4.8-10.8)
[2023-12-04 08:38] LABS: ANION GAP 8 (5-15); CALCIUM 8.6 mg/dL (8.4-11.0); CARBON DIOXIDE 30 mmol/L (23-29); CHLORIDE 105 mmol/L (98-107); CREATININE 1.01 mg/dL (0.55-1.30); GLUCOSE 101 mg/dL (74-106); PHOSPHORUS 4.2 mg/dL (2.7-4.5); POTASSIUM 3.6 mmol/L (3.5-5.1); SODIUM SERUM 143 mmol/L (136-145); UREA NITROGEN, BLOOD 17 mg/dL (8-21)
[2023-12-04 08:41] LABS: INR 1.1 (0.80-1.20); PROTHROMBIN TIME 11.3 SECS (9.5-12.5)
[2023-12-04 09:03] VITALS: BP_SYST 110; PULSE 56; O2SAT 99
[2023-12-04] MEDS ORDERED: FURO-149 PO (10:44)
[2023-12-04] MEDS ORDERED: POTA-178 PO (10:44)
[2023-12-04 11:05] VITALS: BP_SYST 102; PULSE 86; RESP 14; TEMP 97.7; O2SAT 100
[2023-12-04 14:20] VITALS: BP_SYST 115; PULSE 59; RESP 18; TEMP 98.4; O2SAT 95
== END 2023-12-04 15:05 | disposition hospice, home (50) | DRG 291 ==
LOC: SED 15:32 → STU 21:39 → SMU 12-03 14:42
PROVIDERS: ADMIT Student in an Organized Health Care Education/Training Program; ATTEND Student in an Organized Health Care Education/Training Program
DX: I11.0 Hypertensive heart disease with heart failure (principal); E43 Unspecified severe protein-calorie malnutrition; I50.43 Acute on chronic combined systolic (congestive) and diastolic (congestive) heart failure; J96.21 Acute and chronic respiratory failure with hypoxia; J91.0 Malignant pleural effusion; E87.0 Hyperosmolality and hypernatremia; Z20.822 Contact with and (suspected) exposure to COVID-19; J44.9 Chronic obstructive pulmonary disease, unspecified; E11.9 Type 2 diabetes mellitus without complications; E87.8 Other disorders of electrolyte and fluid balance, not elsewhere classified; Z88.0 Allergy status to penicillin; Z88.5 Allergy status to narcotic agent; Z68.25 Body mass index [BMI] 25.0-25.9, adult; Z85.72 Personal history of non-Hodgkin lymphomas; Z85.118 Personal history of other malignant neoplasm of bronchus and lung
CPT/HCPCS: 36415; 71045; 71275; 76604; 80048; 80053; 81001; 81003; 82550; 83605; 83735; 83880; 84100; 84484; 85025; 85379; 85610; 85730; 87040; 87086; 93005; 94070; 94640; 94760; 96374; 99285; G0378; J1644; J1940; Q9967

== ENCOUNTER 2023-12-06 11:47 | Emergency (ER) | payer OTHER ==
[~2023-12-06] VITALS: Ht 167.6 cm; Wt 72.6 kg
[~2023-12-06 11:47] MED LIST changes: +FURO-149 PO; -FURO-150 PO; +POTA-178 PO
[2023-12-06 11:50] VITALS: BP_SYST 112; PULSE 98; RESP 19; TEMP 98.2; O2SAT 98
[2023-12-06 12:23] LABS: BASOPHILS % (AUTO) 0.3 % (0.0-2.0); EOSINOPHILS # (AUTO) 0.2 K/uL (0.0-0.4); EOSINOPHILS % (AUTO) 2.3 % (0.0-4.0); HEMATOCRIT 28.4 % (36-54); HEMOGLOBIN 9.2 g/dL (14.0-18.0); LYMPHOCYTES # (AUTO) 4.4 K/uL (1.0-5.5); LYMPHOCYTES % (AUTO) 53.8 % (20.5-51.5); MEAN CORPUSCULAR HEMOGLOBIN 28 pg (27-31); MEAN CORPUSCULAR HGB CONC 32 % (32-36); MEAN CORPUSCULAR VOLUME 86 fL (79.0-98.0); MONOCYTES # (AUTO) 0.6 K/uL (0.0-1.0); MONOCYTES % (AUTO) 7.5 % (1.7-9.3); NEUTROPHILS # (AUTO) 2.9 K/uL (1.8-7.7); NEUTROPHILS % (AUTO) 36.1 % (40.0-70.0); PLATELET COUNT (AUTO) 167 K/uL (130-430); RED CELL DISTRIBUTION WIDTH 16.4 % (9.0-15.0); WHITE BLOOD COUNT (AUTO) 8.1 K/uL (4.8-10.8)
[2023-12-06 12:55] LABS: ANION GAP 5 (5-15); CALCIUM 8.3 mg/dL (8.4-11.0); CARBON DIOXIDE 33 mmol/L (23-29); CHLORIDE 107 mmol/L (98-107); GLUCOSE 131 mg/dL (74-106); POTASSIUM 3.6 mmol/L (3.5-5.1); SODIUM SERUM 145 mmol/L (136-145)
[2023-12-06 12:56] LABS: CREATININE 1.27 mg/dL (0.55-1.30); UREA NITROGEN, BLOOD 19 mg/dL (8-21)
[2023-12-06 14:43] VITALS: BP_SYST 109; PULSE 63; RESP 27; TEMP 96.8; O2SAT 97
== END 2023-12-06 14:45 | disposition home or self-care (01) ==
LOC: SED 11:47
DX: R06.02 Shortness of breath (principal); J44.9 Chronic obstructive pulmonary disease, unspecified; E11.9 Type 2 diabetes mellitus without complications; I10 Essential (primary) hypertension; Z85.6 Personal history of leukemia; Z88.0 Allergy status to penicillin; Z88.5 Allergy status to narcotic agent; Z79.899 Other long term (current) drug therapy; Z79.2 Long term (current) use of antibiotics
CPT/HCPCS: 36415; 71045; 80048; 85025; 87040; 99284